=== PATIENT | female | born 2000 | race Caucasian/White ===

== ENCOUNTER 2020-07-19 22:40 | Inpatient (IN) | payer OTHER ==
[~2020-07-19] VITALS: Ht 157.5 cm; Wt 70.3 kg
--- NOTE | 2020-07-19 22:51 | NUR ---
SE RECIBE PACIENTE ALERTA Y ORIENTADA EN TIEMPO LUGAR Y PERSONA. REFIERE DOLOR ABDOMINAL EN EL CUADRANTE INFERIOR DERECHO DESDE LA TARDE. SE JANICE SIGNOS VITALES Y SE UBICA PACIENTE EN AREA DE OBSERVACION.
--- NOTE | 2020-07-20 00:52 | NUR ---
PTE ES EVALUADA POR DR. GUERRERO QUIEN ORDENA TRATAMIENTO. RN. Tatiana MARIANO EDUCA A PTE SOBRE ORDENES MEDICAS Y REFIERE COMPRENDER. CANALIZA Y COLECTA MUESTRAS DE LABORATORIO BAJO MEDIDAS ASEPTICAS Y ADMINISTRA MEDICAMENTOS MISAEL ORDEN MEDICA SE MANTIENE A PTE BAJO OBSERVACION POR CAMBIOS EN CONDICION. SE IRENA CONTRASTE PO.
--- NOTE | 2020-07-20 07:26 | NUR ---
SE RECIBE PACIENTE FEMENINA ALERTA Y ORIENTADA EN [place] ESFERAS. AL MOMENTO DE RECIBIR PACIENTE SE ENCUENTRA IRA DE DOLOR Y PENSIENTE A LA VISITA DE DR. CHARITO ROSALES. SE MANTIENE PACIENTE BAJO OBSERVACION Y SE OFRECEN RONDAS PREVENTIVAS.
== END 2020-07-21 12:44 | disposition home or self-care (01) | DRG 392 ==
LOC: EMR PED 22:40 → ER 22:40 → SEC-K 07-20 09:13 → SURG 07-21 10:29
PROVIDERS: ADMIT Surgery; ATTEND Surgery
PROC: BW21ZZZ Computerized Tomography (CT Scan) of Abdomen and Pelvis (ICD-10-PCS; principal; 2020-07-20)
PROC: BU4CZZZ Ultrasonography of Uterus and Ovaries (ICD-10-PCS; 2020-07-20)
DX: R10.31 Right lower quadrant pain (principal); R11.0 Nausea; Z20.822 Contact with and (suspected) exposure to COVID-19

== ENCOUNTER 2020-08-20 20:28 | Emergency (ER) | payer OTHER ==
[~2020-08-20] VITALS: Ht 157.5 cm; Wt 69.4 kg
== END 2020-08-20 22:16 | disposition home or self-care (01) ==
LOC: EMR PED 20:28
DX: N94.4 Primary dysmenorrhea (principal)

== ENCOUNTER 2021-11-20 22:34 | Emergency (ER) | payer OTHER ==
[~2021-11-20] VITALS: Ht 152.4 cm; Wt 70.3 kg
[2021-11-21] MEDS ORDERED: LEVALBUTER0.63 MG/3 IH (03:37)
[2021-11-21] MEDS ORDERED: ACETAMINOPHEN650 M2 PO (03:37)
[2021-11-21] MEDS ORDERED: AZITHROMYCIN500 MG PO (03:37)
[2021-11-21] MEDS ORDERED: ZYRTEC10 M3 PO (03:37)
[2021-11-21] MEDS ORDERED: MOLNUPIRAVIR (200 MG PO (03:37)
[2021-11-21] MEDS ORDERED: ACETAMINOPHEN650 M2 (06:46)
== END 2021-11-21 04:08 | disposition home or self-care (01) ==
LOC: ER 22:34
DX: U07.1 COVID-19 (principal); R09.81 Nasal congestion; J02.9 Acute pharyngitis, unspecified; Z91.013 Allergy to seafood

== ENCOUNTER 2022-04-29 23:26 | Emergency (ER) | payer OTHER ==
[~2022-04-29] VITALS: Ht 157.5 cm; Wt 65.8 kg
[~2022-04-29 23:26] MED LIST: ACETAMINOPHEN650 M2; ACETAMINOPHEN650 M2 PO; AZITHROMYCIN500 MG PO; LEVALBUTER0.63 MG/3 IH; MOLNUPIRAVIR (200 MG PO; ZYRTEC10 M3 PO
[2022-04-30] MEDS ORDERED: ZYNCOF 20-400120 ML PO (03:08)
[2022-04-30] MEDS ORDERED: PHENAGIL TABLE1 EACH PO (03:08)
== END 2022-04-30 03:35 ==
LOC: ER 23:26
DX: J06.9 Acute upper respiratory infection, unspecified (principal); R53.81 Other malaise; Z88.0 Allergy status to penicillin; Z91.013 Allergy to seafood; Z20.822 Contact with and (suspected) exposure to COVID-19

== ENCOUNTER 2022-12-15 23:21 | Emergency (ER) | payer OTHER ==
[~2022-12-15] VITALS: Ht 157.5 cm; Wt 68.0 kg
[~2022-12-15 23:21] MED LIST changes: +PHENAGIL TABLE1 EACH PO; +ZYNCOF 20-400120 ML PO
== END 2022-12-16 02:16 | disposition home or self-care (01) ==
LOC: ER 23:21
DX: R51.9 Headache, unspecified (principal)

== ENCOUNTER 2023-06-08 23:33 | Emergency (ER) | payer OTHER ==
[~2023-06-08] VITALS: Ht 157.5 cm; Wt 65.8 kg
[2023-06-09] MEDS ORDERED: DICLOFENAC SODI75 MG PO (00:37)
== END 2023-06-09 00:58 | disposition home or self-care (01) ==
LOC: ER 23:33
DX: M25.539 Pain in unspecified wrist (principal); Z88.0 Allergy status to penicillin

== ENCOUNTER 2023-06-16 23:23 | Emergency (ER) | payer OTHER ==
[~2023-06-16] VITALS: Ht 157.5 cm; Wt 70.3 kg
[~2023-06-16 23:23] MED LIST changes: +DICLOFENAC SODI75 MG PO
[2023-06-17] MEDS ORDERED: ONDANSETRON ODT4 MG PO (02:46)
[2023-06-17] MEDS ORDERED: PROTONIX40 MG PO (02:46)
[2023-06-17] MEDS ORDERED: PEPCID40 MG PO (02:46)
== END 2023-06-17 02:59 ==
LOC: ER 23:24
DX: K21.9 Gastro-esophageal reflux disease without esophagitis (principal)

== ENCOUNTER 2024-11-06 22:30 | Emergency (ER) | payer OTHER ==
[~2024-11-06] VITALS: Ht 157.5 cm; Wt 72.6 kg
[~2024-11-06 22:30] MED LIST changes: +DOLOGESIC-DF 51 EACH PO; +ONDANSETRON ODT4 MG PO; +PEPCID40 MG PO; +PROTONIX40 MG PO
[2024-11-07] MEDS ORDERED: KETOROLAC TROMETHAMINE 60 MG VIAL IM STA (02:52)
[2024-11-07] MEDS ORDERED: KETOROLAC TROMETHAMINE 60 MG VIAL IM ONE (02:52)
== END 2024-11-07 03:04 | disposition home or self-care (01) ==
LOC: ER 22:30
DX: M25.561 Pain in right knee (principal); Z88.0 Allergy status to penicillin

== ENCOUNTER 2024-11-15 23:51 | Emergency (ER) | payer OTHER ==
[~2024-11-15] VITALS: Ht 157.5 cm; Wt 72.6 kg
[2024-11-16 00:12] VITALS: BP 105/61; O2SAT 98
[2024-11-16] MEDS ORDERED: GUAIFENESIN 200 MG/10 ML BLIST.PACK PO STA (01:58)
[2024-11-16] MEDS ORDERED: ACETAMINOPHEN 500 MG GEL..CAP PO STA (01:58)
[2024-11-16] MEDS ORDERED: DIPHENHYDRAMINE HCL 12.5 MG/5 ML BLIST.PACK PO STA (01:59)
[2024-11-16 02:32] LABS: BASO % 0.3 % (0.1-1.2); EOS # 0.09 (0.04-0.54); EOS % 0.9 % (0.7-7.0); HEMATOCRIT 34.8 % (34.1-44.9); HEMOGLOBIN 11.5 g/dL (11.2-15.7); LYMPH # 0.53 (1.18-3.74); LYMPH % 5.2 % (19.3-53.1); MEAN CORPUSCULAR HEMOGLOBIN 29.2 pg (25.6-32.2); MONO # 1.16 (0.24-0.82); MONO % 11.4 % (4.7-12.5); NEUT # 8.32 (1.56-6.13); NEUT % 81.5 % (34.0-71.1); PLATELET COUNT 244 K/uL (163-369); RED BLOOD COUNT 3.94 M/uL (3.93-5.22); RED CELL DISTRIBUTION WIDTH 12.6 % (11.6-14.4)
[2024-11-16 03:29] LABS: COVID-19 AG POSITIVE (NEGATIVE)
[2024-11-16 03:30] LABS: INFLUENZA A AG NEGATIVE (NEGATIVE); INFLUENZA B AG NEGATIVE (NEGATIVE)
== END 2024-11-16 04:38 ==
LOC: ER 11-16 00:24
PROVIDERS: General Practice
DX: U07.1 COVID-19 (principal); Z88.0 Allergy status to penicillin

== ENCOUNTER 2025-01-25 22:22 | Emergency (ER) | payer OTHER ==
[~2025-01-25] VITALS: Ht 157.5 cm; Wt 72.6 kg
[2025-01-26] MEDS ORDERED: CLINDAMYCIN PHOSPHATE 150 MG/ML (600mg) IM STA (01:43)
== END 2025-01-26 01:59 | disposition home or self-care (01) ==
LOC: ER 22:22
DX: L03.818 Cellulitis of other sites (principal); Z88.0 Allergy status to penicillin

== ENCOUNTER 2025-04-08 21:43 | Emergency (ER) | payer OTHER ==
[~2025-04-08] VITALS: Ht 157.5 cm; Wt 72.6 kg
[2025-04-08] MEDS ORDERED: ONDANSETRON HCL 2 MG/ML VIAL IV STA (22:13)
[2025-04-08] MEDS ORDERED: FAMOTIDINE/PF 20 MG/2 ML VIAL IV STA (22:13)
[2025-04-08] MEDS ORDERED: 0.9 % SODIUM CHLORIDE 1,000 ML IV SCH (22:15)
[2025-04-08] MEDS ORDERED: ONDANSETRON HCL 2 MG/ML VIAL ONE (23:57)
[2025-04-08] MEDS ORDERED: FAMOTIDINE/PF 20 MG/2 ML VIAL ONE (23:57)
[2025-04-09 00:13] LABS: BASO % 0.4 % (0.1-1.2); EOS # 0.12 (0.04-0.54); EOS % 1.0 % (0.7-7.0); LYMPH # 3.43 (1.18-3.74); LYMPH % 27.8 % (19.3-53.1); MEAN PLATELET VOLUME 9.00 fl (9.4-12.4); MONO # 0.92 (0.24-0.82); MONO % 7.5 % (4.7-12.5); NEUT # 7.74 (1.56-6.13); NEUT % 62.7 % (34.0-71.1); RED CELL DISTRIBUTION WIDTH 12.5 % (11.6-14.4)
[2025-04-09 00:28] LABS: ALT/SGPT 22.0 U/L (12-78); AST/SGOT 12.0 U/L (15-37); BILIRUBIN TOTAL 0.29 mg/dL (0.3-1.2); BUN CREA RATIO 16.0 (7.0-25.0); CREATININE SERUM 0.58 mg/dL (0.55-1.02); GFR 126.67; GLOBULINA 4.0 G/DL (2.4-3.5); GLUCOSE FASTING 92.0 mg/dL (65-100); OSMOLALITY SERUM 276.0 MOSM/KG (275-295)
[2025-04-09 00:34] LABS: INR 1.02
[2025-04-09 00:42] LABS: ERYTHROCYTE SEDIMENTATION RATE 33 mm/hr (0-20)
[2025-04-09] MEDS ORDERED: FOLIC ACID1 MG PO (02:04)
[2025-04-09] MEDS ORDERED: PRENATAL MULTI1 EAC4 PO (02:04)
[2025-04-09 02:09] LABS: URINE APPEARANCE Cloudy; URINE BILIRRUBIN Negative (NEGATIVE); URINE BLOOD Negative; URINE COLOR Yellow; URINE GLUCOSE Negative (NEGATIVE); URINE KETONE Negative (NEGATIVE); URINE LEUKOCYTE Negative; URINE NITRATE Negative; URINE PROTEIN Trace (NEGATIVE); URINE UROBILINOGEN 1.0 E.U./dl
[2025-04-09 02:13] LABS: URINE EPITHELIAL CELLS 63.1 uL (0.0-38.8); URINE RBC 11.4 uL (0.0-20.8); URINE WBC 5.2 uL (0.0-23.2)
[2025-04-09 03:07] LABS: URINE CAST 0.00 uL (0.0-1.40)
== END 2025-04-09 02:23 | disposition home or self-care (01) ==
LOC: ER 21:44
PROVIDERS: Physician Assistant Medical
DX: O26.891 Other specified pregnancy related conditions, first trimester (principal); Z3A.00 Weeks of gestation of pregnancy not specified; Z88.0 Allergy status to penicillin; R10.9 Unspecified abdominal pain